=== PATIENT | male | born 1980 | race Two or more races ===

== ENCOUNTER 2022-11-18 07:48 | Emergency (ER) | payer OTHER ==
[~2022-11-18] VITALS: Ht 182.9 cm; Wt 99.8 kg
== END 2022-11-18 10:18 | disposition home or self-care (01) ==
LOC: ER 07:48
DX: S29.8XXA Other specified injuries of thorax, initial encounter (principal); S21.90XA Unspecified open wound of unspecified part of thorax, initial encounter; W18.39XA Other fall on same level, initial encounter; Y93.I9 Activity, other involving external motion; Y92.89 Other specified places as the place of occurrence of the external cause; Y99.8 Other external cause status